=== PATIENT | female | born 1950 | race Caucasian/White ===

== ENCOUNTER → 2024-02-16 | Day surgery (SDC) | payer OTHER | END | disposition home or self-care (01) | LOC: JRADUS-SUR 12:52 | PROVIDERS: ATTEND Specialist | PROC: 0HBT3ZX Excision of Right Breast, Percutaneous Approach, Diagnostic (ICD-10-PCS; principal; 2024-02-16) | DX: N60.31 Fibrosclerosis of right breast (principal); N63.11 Unspecified lump in the right breast, upper outer quadrant | CPT/HCPCS: 19083; 77065-TC; 87899; 88305-TC; A4648 ==